=== PATIENT | female | born 1965 | race Caucasian/White ===

== ENCOUNTER 2020-05-29 06:20 | Day surgery (SDC) | payer OTHER ==
[2020-05-26 20:13] VITALS: BMI 38.2
[2020-05-29 06:57] LABS: INR 1.05 (0.83-1.09); PROTHROMBIN TIME (PATIENT) 12.4 SEC (9.7-13.0)
[2020-05-29 07:00] LABS: ACTIVATED PTT 32.1 SECONDS (25.2-36.5)
--- NOTE | 2020-05-29 08:21 | HP ---
Past Medical History - Primary Care Physician PCP:: Rigo Ivey - Admission Chief Complaint: 54yo P2 with postmenopausal bleeding, admitted for laparoscpic total hysterectomy and left salpingoophorectomy. History of Present Illness: Prior D&C x 3 negative for malignancy or hyperplasia. History Source: Patient Limitations to Obtaining History: No Limitations - Past Medical History PRODUCTION PACKAGER: No: Alzheimer's, CVA, Dementia, Migraine, Multiple Sclerosis, Peripheral Neuropathy, Parkinson's, Seizure, Syncope, TIA, Vertigo, Other Cardiovascular: Yes: HTN Pulmonary: No: Asthma, Bronchitis, Cancer, COPD, O2 Dependent, Pneumonia, Previously Intubated, Pulmonary Embolus, Pulmonary Fibrosis, Sleep Apnea, Other Gastrointestinal: Yes: Diverticulitis Hepatobiliary: No: Cirrhosis, Cholelithiasis, Cholecystitis, Choledocholithiasis, Hepatitis A, Hepatitis B, Hepatitis C, Other Renal/: Yes: Renal Calculi Reproductive: No: Ectopic , Endometriosis, Fibroids, PID, Polycystic Ovary Syndrome, Postmenopausal, Other ...Para: 2 ( x 1, x 1) Heme/Onc: No: Anemia, B12 Deficiency, Bleeding Disorder, Cancer, Current Chemotherapy, Current Radiation Therapy, Hemochromatosis, Hypercoaguable State, Myeloproliferative Synd, Sickle Cell Disease, Sickle Cell Trait, Thrombocytopenia, Other Infectious Disease: No: AIDS, C-Diff, Herpes Zoster, HIV, MRSA, STD's, Tuberculosis, VREF, Other Psych: No: Addictions, Anxiety, Bipolar, Depression, Panic, Psychosis, Schizophrenia, Other Musculoskeletal: No: Bursitis, Chronic low back pain, Hemiparesis, Hemiplegia, Osteoarthritis, Paraplegia, Other Rheumatology: No: Fibromyalgia, Gout, Lupus, Rheumatoid Arthritis, Sarcoidosis, Vasculitis, Other ENT: No: Allergic Rhinitis, Sinusitis, Other Endocrine: No: G[place]chland's Disease, Rosita's Disease, Diabetes Insipidus, Diab etes Mellitus, Hyperparathyroidism, Hyperthyroidism, Hypothyroidism, Osteopenia, SIADH, Other Dermatology: No: Basal Cell, Cellulitis, Eczema, Melanoma, Psoriasis, Squamous Cell, Other Additional Medical History: Morbid obesity - Past Surgical History Past Surgical History: Yes: Appendectomy (minilap), (x 1), Oopherectomy (laparoscopic right salpinoophorectomy) Hx Myomectomy: No Hx Transabdominal Cerclage: No Additional Surgical History: D&C x 3 - Smoking History Smoking history: Never smoked Have you smoked in the past 12 months: No - Alcohol/Substance Use Hx Alcohol Use: Yes (OCC) History of Substance Use: reports: None - Social History Usual Living Arrangement: Yes: With Spouse Do you think of yourself as: Straight/Heterosexual ADL: Independent History of Recent Travel: No Home Medications - Allergies Allergies/Adverse Reactions: Allergies Allergy/AdvReac Type Severity Reaction Status Date / Time No Known Allergies Allergy Verified 12/27/19 15:52 - Home Medications Home Medications: Ambulatory Orders Atenolol [Tenormin -] 50 mg PO DAILY 06/25/14 Potassium Chloride [K-Tab ER] 20 meq PO BID 12/27/19 Triamterene/Hydrochlorothiazid [Triamterene-Hctz 37.5-25 mg Cp] 1 each PO DAILY 12/27/19 Family Medical History Family Hx Nuerologic Problems: Father (spinal stenosis) Review of Systems - Review of Systems Constitutional: reports: No Symptoms Eyes: reports: No Symptoms HENT: reports: No Symptoms Neck: reports: No Symptoms Cardiovascular: reports: No Symptoms Respiratory: reports: No Symptoms Gastrointestinal: reports: No Symptoms Genitourinary: reports: No Symptoms Breasts: reports: No Symptoms Reported Musculoskeletal: reports: No Symptoms Integumentary: reports: No Symptoms Neurological: reports: No Symptoms Endocrine: reports: No Symptoms Hematology/Lymphatic: reports: No Symptoms Psychiatric: reports: No Symptoms Pain Intensity: 0 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 Vital Signs: Vital Signs Temperature 97.7 F 05/29/20 07:06 Pulse Rate 70 05/29/20 07:06 Respiratory Rate 20 05/29/20 07:06 Blood Pressure 144/86 05/29/20 07:06 O2 Sat by Pulse Oximetry (%) 98 05/29/20 07:06 Constitutional: Yes: No Distress, Calm, Obese Eyes: Yes: WNL, Conjunctiva Clear, EOM Intact HENT: Yes: WNL, Atraumatic, Normocephalic Neck: Yes: WNL, Supple, Trachea Midline Cardiovascular: Yes: WNL, Regular Rate and Rhythm Respiratory: Yes: WNL, Regular, CTA Bilaterally Gastrointestinal: Yes: Normal Bowel Sounds, Soft, Abdomen, Obese ...Rectal Exam: Yes: Deferred Renal/: Yes: WNL Pelvis: Yes: WNL External Genitalia: Yes: Normal Internal Exam Deferred: No Vaginal Exam: Yes: Normal Cervix: Yes: Normal Uterus: Yes: Normal Breast(s): Yes: WNL Musculoskeletal: Yes: WNL Extremities: Yes: WNL Edema: No Integumentary: Yes: WNL Neurological: Yes: WNL, Alert, Oriented ...Motor Strength: WNL Psychiatric: Yes: WNL, Alert, Oriented Imaging - Results Ultrasound: Report Reviewed Assessment/Plan 54yo P2 with postmenopausal bleeding, admitted for laparoscpic total hysterectomy and left salpingoophorectomy. We discussed the risks and benefits of laparoscopic hysterectomy and LSO at length, including but not limited to scarring, pain, bleeding, infection, injury to underlying organs and structures, need for additional surgery to repair/treat any problems or complications, etc. We also discussed that the current recommendations advise to maintain the ovaries, if the patient has no FHx of ovarian cancer and the ovaries are normal. This is done b/c studies show an overall increase in mortality in women after oophorectomy. The pt prefers to have ovaries removed, if possible. We also discussed increased risks due to morbid obesity and multiple prior abdominal surgeries. The pt verbalized her understanding of procedure, risks, benefits, alternatives, and requested to proceed with surgery. The pt is aware that all surgeries have risks and no guarantees can be provided.
[2020-05-29] MEDS ORDERED: CEFAZOLIN 2 GM/D5W 2 GM/50 ML ML IVPB ONE (08:23)
[2020-05-29] MEDS ORDERED: ISOSULFAN BLUE 10 MG/ML VIAL SQ ONE (08:57)
[2020-05-29] MEDS ORDERED: BUPIVACAINE HCL 0.5% 250 MG/50 ML VIAL IJ ONE ×2 (09:39)
[2020-05-29] MEDS ORDERED: PROMETHAZINE HCL 25 MG/1 ML VIAL IVPUSH PRN (11:56)
[2020-05-29] MEDS ORDERED: ONDANSETRON 4 MG/2 ML VIAL IVPUSH PRN (11:56)
[2020-05-29] MEDS: HYDROmorphone *PCA* 10MG/50ML DISP.SYRIN PCA SCH ×2 (12:15→14:17)
--- NOTE | 2020-05-29 12:43 | OP ---
Operative Note - Note: Operative Date: 05/29/20 Pre-Operative Diagnosis: Postmenopausal bleding, morbid obesity Operation: Total laparoscopic hysterectomy, partial left salpingectomy, cystoscopy Findings: 1. EUA showed a small AV uterus 2. Laparoscopy showed: - multiple dense adhesions in RLQ at the site of prior Appendectomy - Very dense adhesions obliterating posterior cul-de-sac - very dense adhesions of bowel to LLQ and left adnexa. The left Fallopian tube could be traced half of its length but the fimbriated end of the tube and left ovary could not be visualized. - normal upper bowel/liver/stomach 3. Cystoscopy showed normal bladder and normally functioning ureters bilaterally Post-Operative Diagnosis: Same as Pre-op Surgeon: Rigo Ivey Estate Planner: Jenifer Sanders Anesthesiologist/IT DATA ARCHITECT: Osbaldo Garcia Anesthesia: General Specimens Removed: Uterus w/cerix, part of left Fallopian tube Estimated Blood Loss (mls): 50 Drains & Tubes with Location: Natarajan Cath Drains, Volume Out (mls): 500 Blood Volume Replaced (mls): 0 Fluid Volume Replaced (mls): 1,600 Operative Report Dictated: Yes
[2020-05-29] MEDS ORDERED: DEXTROSE 5%-LACTATED RINGERS 1,000 ML IV SCH (13:45)
[2020-05-29] MEDS: CEFAZOLIN 2 GM/D5W 2 GM/50 ML ML IVPB SCH (17:47)
[2020-05-30] MEDS: CEFAZOLIN 2 GM/D5W 2 GM/50 ML ML IVPB SCH (01:14)
[2020-05-30 08:00] LABS: BASO % 0.1 % (0-2.0); BILIRUBIN,TOTAL 0.9 mg/dL (0.2-1); BLOOD UREA NITROGEN 9.2 mg/dL (7-18); CALCIUM 8.9 mg/dL (8.5-10.1); CREATININE 0.8 mg/dL (0.55-1.3); EOS % 0.1 % (0-4.5); HEMATOCRIT 36.1 % (32.4-45.2); HEMOGLOBIN 12.2 GM/dL (10.7-15.3); LYMPH % 19.5 % (8-40); MCH 29.6 pg (25.7-33.7); MCHC 33.8 g/dl (32.0-36.0); MEAN CELL VOLUME 87.8 fl (80-96); MEAN PLT VOLUME 7.5 fl (7.5-11.1); MONO % 6.4 % (3.8-10.2); NEUT % 73.9 % (42.8-82.8); PLATELET COUNT 373 K/MM3 (134-434); POTASSIUM 3.4 mmol/L (3.5-5.1); RBC 4.11 M/mm3 (3.60-5.2); RDW 13.6 % (11.6-15.6); WHITE BLOOD COUNT 12.6 K/mm3 (4.0-10.0)
--- NOTE | 2020-05-30 09:07 | PN ---
Progress Note (SOAP) - Subjective Chief Complaint: 54yo POD#1 s/p total laparoscopic hysterectomy. Pt is w/o complaints. She is passing flatus, no nausea/vomiting, pain is minimal. History of Present Illness: Postop day# 1 - Current Medications Current Medications: Active Medications Enoxaparin Sodium (Lovenox -) 40 mg SQ DAILY LACHELLE Hydromorphone HCl (Hydromorphone 10 Mg/50 Ml-Ns) 10 mg SYSTEM CONSULTANT SYSTEM CONSULTANT LACHELLE; Protocol Stop: 05/30/20 11:59 Last Admin: 05/29/20 14:17 Dose: Not Given Documented by: Dextrose/Lactated Ringer's (D5-Lr -) 1,000 mls @ 125 mls/hr IV ASDIR LACHELLE Last Admin: 05/29/20 14:00 Dose: 125 mls/hr Documented by: - Objective Vital Signs: Vital Signs Temperature 98.9 F 05/30/20 01:00 Pulse Rate 78 05/30/20 05:00 Respiratory Rate 20 05/30/20 05:00 Blood Pressure 131/64 05/30/20 05:00 O2 Sat by Pulse Oximetry (%) 98 05/30/20 05:00 Constitutional: Yes: Well Nourished, No Distress, Calm Eyes: Yes: WNL, Conjunctiva Clear, EOM Intact HENT: Yes: WNL, Atraumatic, Normocephalic Neck: Yes: WNL, Supple, Trachea Midline Cardiovascular: Yes: WNL, Regular Rate and Rhythm Respiratory: Yes: WNL, Regular, CTA Bilaterally Gastrointestinal: Yes: Normal Bowel Sounds, Soft, Abdomen, Obese ...Rectal Exam: Yes: Deferred Genitourinary: Yes: WNL (Natarajan in place) Musculoskeletal: Yes: WNL Extremities: Yes: WNL Peripheral Pulses WNL: Yes Edema: No Integumentary: Yes: WNL Wound/Incision: Yes: Clean/Dry, Well Approximated, Sutures Intact, Open to air Neurological: Yes: WNL, Alert, Oriented ...Motor Strength: Yes: WNL Psychiatric: Yes: WNL, Alert, Oriented Labs Lab Results: CBCD WBC 12.6 K/mm3 (4.0-10.0) H 05/30/20 07:10 RBC 4.11 M/mm3 (3.60-5.2) 05/30/20 07:10 Hgb 12.2 GM/dL (10.7-15.3) 05/30/20 07:10 Hct 36.1 % (32.4-45.2) D 05/30/20 07:10 MCV 87.8 fl (80-96) 05/30/20 07:10 MCHC 33.8 g/dl (32.0-36.0) 05/30/20 07:10 RDW 13.6 % (11.6-15.6) 05/30/20 07:10 Plt Count 373 K/MM3 (134-434) D 05/30/20 07:10 MPV 7.5 fl (7.5-11.1) 05/30/20 07:10 CMP Sodium 141 mmol/L (136-145) 05/30/20 07:10 Potassium 3.4 mmol/L (3.5-5.1) L 05/30/20 07:10 Chloride 105 mmol/L (98-107) 05/30/20 07:10 Carbon Dioxide 29 mmol/L (21-32) 05/30/20 07:10 Anion Gap 8 MMOL/L (8-16) 05/30/20 07:10 BUN 9.2 mg/dL (7-18) 05/30/20 07:10 Creatinine 0.8 mg/dL (0.55-1.3) 05/30/20 07:10 Random Glucose 104 mg/dL (74-106) 05/30/20 07:10 Calcium 8.9 mg/dL (8.5-10.1) 05/30/20 07:10 Total Bilirubin 0.9 mg/dL (0.2-1) 05/30/20 07:10 AST 10 U/L (15-37) L 05/30/20 07:10 ALT 16 U/L (13-61) 05/30/20 07:10 Alkaline Phosphatase 89 U/L (45-117) 05/30/20 07:10 Total Protein 6.0 g/dl (6.4-8.2) L 05/30/20 07:10 Albumin 3.0 g/dl (3.4-5.0) L 05/30/20 07:10 Assessment/Plan 54yo P2 s/p TLH, doing well, clinically stable. D/c Natarajan D/c SYSTEM CONSULTANT Ambulate Advance to regular diet. Discharge planning for today is pt is stable. Postop instructions reviewed.
[2020-05-30] MEDS ORDERED: PCA PUMP NR ONE ×2 (09:43→13:37)
[2020-05-30] MEDS ORDERED: ENOXAPARIN NA (PORCINE) 40 MG/0.4 ML DISP.SYRIN SQ SCH (10:00)
[2020-05-30 13:11] VITALS: BP 140/70; PULSE 84; TEMP 98.5
--- NOTE | 2020-05-31 14:25 | PN ---
Progress Note (short form) - Note Progress Note: I called the pt today to ask how she is feeling. The pt reports feeling well, minimal pain, no fever or chills. She has normal and GI function. No complaints. We reviewed precautions and instructions and I advised f/u.
--- NOTE | 2020-05-31 16:08 | PATH ---
Surgical Pathology Report Patient Name: CLARICE CULP [facility]. Rec. #: [id number] /Age/Gender: 1965 (Age: 54) / F Account: [id number] Location: AMBULATORY SURG Taken: 05/29/2020 Received: 05/29/2020 Reported: 05/31/2020 Physicians: Rigo Ivey M.D. Specimen(s) Received UTERUS AND CERVIX Clinical History Obesity and postmenopausal bleeding Final Diagnosis UTERUS AND CERVIX, HYSTERECTOMY: LEIOMYOMAS. INACTIVE/WEAKLY PROLIFERATIVE ENDOMETRIUM. CERVIX WITH SQUAMOUS METAPLASIA. Electronically Signed Tim Farley M.D. Gross Description Received in formalin labeled "uterus and cervix", is a 72 g uterus with an attached cervix. No ovary or fallopian tube is present. The specimen measures 7 cm from superior to inferior, 5.5 cm from anterior to posterior, and 2.5 cm from left to right. The serosa is finney-pink and smooth. The attached cervix measures 3 cm in length and averages 2.5 cm in diameter. The ectocervix is finney-pink, smooth and glistening. The endocervix is unremarkable. The endometrial cavity measures 3 cm in length and 4.0 cm from cornu to cornu. The endometrium is finney-red and measures up to 0.1 cm in thickness. The myometrium displays 2 submucosal nodules, measuring up to 0.5 cm in greatest dimension. The cut surface of the nodules is finney and rubbery with whorled architecture. The remaining myometrium is finney-pink and measures up to 1.5 cm in thickness. Photographic Technician sections are submitted in 7 cassettes as follows: 1-anterior cervix; 2-posterior cervix; 6-9-csbslfjl endomyometrium; 0-3-ewrhagabl endomyometrium; 7 submucosal nodules.8-sections of the possible tubal structure near uterine cornu KWS/05/29/2020 sulki/05/29/2020
--- NOTE | 2020-06-05 18:08 | OP ---
DATE OF OPERATION: 05/29/2020 DATE OF DICTATION: 06/05/2020 PREOPERATIVE DIAGNOSIS: Postmenopausal bleeding and morbid obesity. POSTOPERATIVE DIAGNOSIS: Postmenopausal bleeding and morbid obesity. PROCEDURE: Total laparoscopic hysterectomy, partial left salpingectomy, cystoscopy. SURGEON: Rigo Ivey MD. MORTGAGE LOAN PROCESSOR: Jenifer Sanders MD. ANESTHESIOLOGIST: Osbaldo Garcia MD. ANESTHESIA: General endotracheal. COMPLICATIONS: None. ESTIMATED BLOOD LOSS: 50 mL. INTRAVENOUS FLUIDS: 1600 mL. URINE OUTPUT: 500 mL clear urine at the end of the procedure. PATHOLOGY: Uterus with cervix and proximal part of left fallopian tube. FINDINGS: Examination under anesthesia revealed a small anteverted uterus freely mobile within the pelvis and no pelvic or adnexal masses. Laparoscopy showed multiple dense adhesions of bowel and omentum in the right lower quadrant at the site of a previous appendectomy. Multiple very dense adhesions that were obliterating posterior cul-de-sac, multiple very dense adhesions of bowel to left lower quadrant and left adnexa completely covering and obscuring the left ovary and distal portion of the left tube. The left fallopian tube could be traced approximately half of its length from the uterine cornua to the left adnexa; however, the fimbriated end of the left fallopian tube could not be visualized. The left ovary also could not be visualized. Cystoscopy revealed normal bladder and normally functioning ureters bilaterally. Laparoscopy also revealed a normal upper bowel, liver and stomach. PROCEDURE: The patient was met preoperatively. Risks, benefits, and alternatives were discussed at length. The risks of surgery were listed including infection, bleeding, injury to underlying organs or structures, perforation, scarring, need for additional surgery to repair or treat any complications, increased risks due to obesity and previous multiple abdominal surgeries were explained. The patient verbalized her understanding. The consent form was reviewed and discussed, and all questions were answered. The patient verbalized her understanding and requested to proceed with surgery. The patient was brought to the OR with the IV running. She was placed on a surgical table in the supine position. The general anesthesia was achieved without difficulty. The patient was then placed in a dorsal lithotomy position using adjustable Beto stirrups. She was examined under anesthesia with the findings as described above. A Natarajan catheter was inserted inside the bladder with a sterile technique. The patient was prepped and draped in the usual sterile fashion. A Audiolifeare uterine manipulator was introduced inside the uterus using a sterile technique. The surgeons then proceeded with the operation. A 5-mm intraumbilical incision was made with the knife. A Veress needle was introduced through the umbilical incision without complications. Pneumoperitoneum was then produced with the intraabdominal pressure set to 15 mmHg. Once this was completed, the Veress needle was removed. An Optiview trocar was placed through the umbilical incision under direct visualization. This was done atraumatically and without complications. Survey of the abdomen and pelvis revealed the findings as described above. Survey of the upper abdomen revealed normal liver, stomach, and upper portion of bowel. At that point, a 5-mm incision was made in the left lower quadrant and a 5-mm trocar was placed through that incision under direct visualization. A 5-mm incision was then also made in the right lower quadrant and a trocar was inserted under direct visualization. Another 5-mm incision was made in the left mid quadrant, and the trocar was inserted under direct visualization. Multiple dense adhesions were lysed with good hemostasis in the right lower quadrant to gain visualization of the right side of the pelvis. Multiple dense adhesions were also lysed between the bowel and the posterior cul-de-sac to visualize the uterosacral ligaments. An attempt was made to lyse and dissect multiple dense adhesions in the left pelvis surrounding the distal left fallopian tube and ovary; however, that was abandoned due to very dense adhesive disease, and it was also felt that the risks were not justified in pursuing that dissection. At that point, a LigaSure device was used to cauterize and transect the left fallopian tube. This was done with good hemostasis. The right fallopian tube and ovary were absent due to history of previous right salpingooophorectomy. The left round ligament was also cauterized and transected using LigaSure with good hemostasis. The anterior leaf of the broad ligament was then incised, and the dissection was carried medially. The posterior leaf of the broad ligament was also incised and the dissection was also carried medially towards the uterosacral ligament and towards the cardinal ligaments. The left uterine artery and vein were dissected and cauterized using LigaSure device. After thorough cauterization the uterine vessels were transected with good hemostasis. The bladder peritoneum was incised over the lower uterine segment. The bladder was then carefully dissected downwards, exposing the cervicovaginal fascia. The right round ligament was then cauterized using a LigaSure device and transected with good hemostasis. The anterior leaf of the broad ligament on the right side was also incised and dissected medially. The posterior leaf of the broad ligament was also incised on the right side and dissected medially as well. The right uterine artery and vein were dissected, cauterized and ligated with good hemostasis using LigaSure device. The right side of the bladder was then dissected off the cervicovaginal fascia and the bladder was retracted downwards. At that point, a monopolar cautery device was used to circumferentially incise the vaginal cuff around the cervix. This was completed atraumatically and with good hemostasis. Once this was done, the uterus and cervix were removed through the vagina. The vagina cuff was closed using a 2-0 V-Loc suture with good hemostasis and approximation. Once the vaginal cuff was closed, once again good hemostasis was confirmed. The operative site was irrigated with copious amounts of normal saline and good hemostasis was noted once the saline was aspirated. At that point, the pneumoperitoneum was reduced, and the surgeons proceeded with the cystoscopy. A Natarajan catheter was removed and a cystoscope was gently advanced into the bladder. Survey of the bladder revealed no pathology, and normal functioning ureters bilaterally. Once the cystoscopy was completed, the cystoscope was removed from the patient, and a new Natarajan catheter was placed and left to drain to gravity. The surgeons then returned to the laparoscopy. Survey of the operative site once again confirmed good hemostasis. At that point, the pneumoperitoneum was eliminated. All of the instruments were removed from the patient. Sponge, lap and instruments counts were correct. The incisions were closed using 3-0 Biosyn suture for the skin. The patient was then returned to supine position. She was transferred to recovery room awake and in stable condition. Viktor [id number]
== END 2020-05-30 13:45 | disposition home or self-care (01) ==
LOC: JASUSAT 06:20 → J8W 13:42 → JASUSAT 05-30 13:45
PROVIDERS: ATTEND Obstetrics & Gynecology
PROC: 0UT9FZZ Resection of Uterus, Via Natural or Artificial Opening With Percutaneous Endoscopic Assistance (ICD-10-PCS; principal; 2020-05-29 08:00)
PROC: 0UT6FZZ Resection of Left Fallopian Tube, Via Natural or Artificial Opening With Percutaneous Endoscopic Assistance (ICD-10-PCS; 2020-05-29 08:00)
DX: D25.9 Leiomyoma of uterus, unspecified (principal); N95.0 Postmenopausal bleeding; E66.01 Morbid (severe) obesity due to excess calories
CPT/HCPCS: 36415; 80053; 84703; 85025; 85610; 85730; 86850; 86900; 86901; 88307-TC; 94010; 94760